=== PATIENT | male | born 1965 | race Caucasian/White ===

== ENCOUNTER 2018-10-08 10:06 | Emergency (ER) | payer BC ==
[~2018-10-08] VITALS: Ht 185.4 cm; Wt 99.3 kg
[2018-10-08 11:05] LABS: URINE BILIRUBIN NEGATIVE (Negative); URINE BLOOD NEGATIVE (Negative); URINE CLARITY CLOUDY; URINE COLOR YELLOW; URINE GLUCOSE-RANDOM* NEGATIVE (Negative); URINE KETONES NEGATIVE (Negative); URINE LEUKOCYTES-REFLEX NEGATIVE (Negative); URINE NITRITE-REFLEX NEGATIVE (Negative); URINE PROTEIN (DIPSTICK) 1+ (Negative); URINE SPECIFIC GRAVITY >= 1.030 (1.005-1.035)
[2018-10-08 11:06] LABS: ABSOLUTE NEUTROPHILS 8.1 thou/uL (1.4-8.2); BASOPHILS 0.6 % (0.0-2.0); EOSINOPHILS 2.1 % (0.0-3.0); HEMATOCRIT 43.1 % (42.0-52.0); HEMOGLOBIN 14.8 gm/dL (14.0-18.0); LYMPHOCYTES 12.1 % (24.0-44.0); MCH 30.5 pg (26.0-34.0); MCHC 34.5 g/dL (28.0-37.0); MCV 88.5 fL (80.0-100.0); MONOCYTES 4.2 % (1.0-8.0); PLATELET COUNT 265 thou/uL (150-400); RBC 4.87 mil/uL (4.50-6.00)
[2018-10-08 11:13] LABS: CALCIUM 9.2 mg/dL (8.5-10.1); CREATININE 1.2 mg/dL (0.7-1.3); POTASSIUM 3.7 mmol/L (3.5-5.1)
[2018-10-08 11:17] LABS: AMORPHOUS URATES Many /LPF (None Seen); BACTERIA-REFLEX 1-9 Few /HPF (None Seen); CASTS None Seen /LPF (None Seen); SQUAMOUS None Seen /LPF (0-3); URINE RBC None Seen /HPF (0-2); URINE WBC-REFLEX None Seen /HPF (0-5)
[2018-10-08 11:19] LABS: ALBUMIN 4.3 g/dL (3.4-5.0); TOTAL BILIRUBIN 0.6 mg/dL (<0.1-1.0); TOTAL PROTEIN 7.6 g/dL (6.4-8.2)
[2018-10-08 13:01] VITALS: BP 115/68
--- NOTE | 2018-10-10 18:13 | EKG ---
[place] [address] [facility] [place] [address] ELECTROCARDIOGRAM REPORT Name: MONI MYERS Room #: [facility]#: [id number] ������������������ Admission: 10/08/18 ������������������ Attend Phys: Discharge: 10/08/18 ������������������ Date of : 61 Report #: [id number] ����������������������������������������������������������������� [id number] THIS REPORT FOR: //name// [facility] ED Test Date: 2018-10-08 Test Time: 11:39:43 Pat Name: MONI MYERS Department: Room: Gender: M [employer]: wg : 1965 Requested By: Nargis Cervantes Order Number: [id number] MD: Tate Chow Measurements Intervals [place] Rate: 44 P: 38 FL: 181 QRS: 21 QRSD: 98 T: 22 QT: 457 QTc: 391 Interpretive Statements Sinus bradycardia Otherwise no significant abnormality Baseline wander in lead(s) V4 No previous ECG available for comparison Electronically Signed On 10-10-2018 18:13:17 CDT by Tate Chow [email or web address] ��������������������������������������������� <ELECTRONICALLY SIGNED> ���������������������������������������� By: Tate Chow MD, [facility] ��������������������������������������������� 10/10/18 1813 1139 1139 Tate Chow MD, FACC /EPI
== END 2018-10-08 13:02 | disposition home or self-care (01) ==
LOC: ER 10:06
PROVIDERS: Physician Assistant
DX: T67.5XXA Heat exhaustion, unspecified, initial encounter (principal); E86.9 Volume depletion, unspecified; R00.1 Bradycardia, unspecified; R42 Dizziness and giddiness